=== PATIENT | male | born 1970 | race Caucasian/White ===

== ENCOUNTER 2019-04-03 19:05 | Emergency (ER) | payer SELFPAY ==
[~2019-04-03] VITALS: Ht 190.5 cm; Wt 133.4 kg
[~2019-04-03 19:05] MED LIST: ANAPROX DS550 MG PO; CLINDAMYCIN HC300 MG PO; FLEXERIL10 MG PO; MOTRIN800 MG PO; NAPROSYN500 MG PO; NKHM; NORCO 5-325 TA1 EACH PO; Orphenadrine C100 MG PO; PEN-VEE K500 MG PO; PENICILLIN VK500 MG PO; PERCOCET 325 MG1 TA7 PO; TRAMADOL HCL50 MG PO; TRIMOX500 MG PO; VICODIN 5/500 505 MG PO
[2019-04-03] MEDS ORDERED: CEFADROXIL500 M1 PO (19:54)
[2019-04-03] MEDS ORDERED: SEPTDS PO (19:54)
[2019-04-03] MEDS ORDERED: NORCO 5-325 TA1 EACH PO (19:56)
== END 2019-04-03 20:31 | disposition home or self-care (01) ==
LOC: ED 19:05
DX: L02.415 Cutaneous abscess of right lower limb (principal); F17.200 Nicotine dependence, unspecified, uncomplicated

== ENCOUNTER 2020-07-27 05:19 | Emergency (ER) | payer SELFPAY ==
[~2020-07-27] VITALS: Ht 190.5 cm; Wt 136.1 kg
[~2020-07-27 05:19] MED LIST changes: +CEFADROXIL500 M1 PO; +SEPTDS PO
[2020-07-27 06:14] LABS: BASO % 0.4 % (0.0-1.0); EOS # 0.2 10*3/uL (0.0-0.4); EOS % 2.4 % (1.0-4.0); LYMPH # 2.4 10*3/uL (1.3-4.4); LYMPH % 29.4 % (27.0-41.0); MEAN CELL VOLUME 89.1 fl (80.0-94.0); MEAN CORPUSCULAR HGB 30.1 pg (27.0-31.0); MEAN CORPUSCULAR HGB CONC 33.8 g/dl (33.0-37.0); MEAN PLATELET VOLUME 11.3 fl (9.6-12.3); MONO # 0.6 10*3/uL (0.1-1.0); MONO % 7.6 % (3.0-9.0); PLATELET COUNT AUTOMATED 134 10*3/uL (130-400); RED BLOOD COUNT 5.05 10*6/uL (4.50-5.90); RED CELL DISTRI WIDTH 13.2 % (0-14.5); WHITE BLOOD COUNT 8.3 10*3/uL (4.8-10.8)
[2020-07-27 06:31] LABS: BUN 8 mg/dl (7-24); CHLORIDE 109 mmol/L (98-107); CREATININE 0.84 mg/dL (0.70-1.30); POTASSIUM 3.9 mmol/L (3.5-5.1); SODIUM 142 mmol/L (136-145)
[2020-07-27] MEDS ORDERED: SEPTDS PO (09:55)
== END 2020-07-27 10:20 | disposition home or self-care (01) ==
LOC: ED 05:19
PROVIDERS: Internal Medicine
DX: L02.416 Cutaneous abscess of left lower limb (principal); Z88.8 Allergy status to other drugs, medicaments and biological substances; Z79.899 Other long term (current) drug therapy; Z90.49 Acquired absence of other specified parts of digestive tract; Z98.890 Other specified postprocedural states

== ENCOUNTER 2020-11-14 14:20 | Emergency (ER) | payer SELFPAY ==
[~2020-11-14] VITALS: Ht 190.5 cm; Wt 137.9 kg
[2020-11-14] MEDS ORDERED: CEPHALEXIN500 M1 PO (15:40)
== END 2020-11-14 16:09 | disposition home or self-care (01) ==
LOC: ED 14:20
DX: S61.215A Laceration without foreign body of left ring finger without damage to nail, initial encounter (principal); L03.012 Cellulitis of left finger; Z79.899 Other long term (current) drug therapy; X58.XXXA Exposure to other specified factors, initial encounter; Y93.89 Activity, other specified; Y92.89 Other specified places as the place of occurrence of the external cause; Y99.8 Other external cause status

== ENCOUNTER 2023-04-01 00:05 | Emergency (ER) | payer OTHER ==
[~2023-04-01] VITALS: Wt 131.5 kg
[~2023-04-01 00:05] MED LIST changes: +CEPHALEXIN500 M1 PO
[2023-04-01 01:01] LABS: BILIRUBIN Negative (Negative); BLOOD Negative (Negative); CLARITY Clear (Clear); COLOR Yellow (Yellow); GLUCOSE 3+ (Negative); KETONE Trace (Negative); LEUKO ESTERASE Negative (Negative); NITRITE Negative (Negative); PH 5.5 (4.5-8.0); SPECIFIC GRAVITY 1.025 (1.001-1.030)
[2023-04-01 01:22] LABS: RBC 0-2 rbc/hpf (0-2); WBC 0-2 wbc/hpf (0-5)
== END 2023-04-01 01:50 | disposition home or self-care (01) ==
LOC: ED 00:05
PROVIDERS: Internal Medicine
DX: M79.642 Pain in left hand (principal); M79.89 Other specified soft tissue disorders; M25.532 Pain in left wrist; R10.9 Unspecified abdominal pain; M25.521 Pain in right elbow; Z88.8 Allergy status to other drugs, medicaments and biological substances; Z90.49 Acquired absence of other specified parts of digestive tract; Z98.890 Other specified postprocedural states; Z87.891 Personal history of nicotine dependence

== ENCOUNTER 2023-06-26 05:02 | Emergency (ER) | payer OTHER ==
[~2023-06-26] VITALS: Ht 190.5 cm; Wt 136.1 kg
[2023-06-26 06:24] LABS: MEAN CELL VOLUME 89.4 fl (80.0-94.0); MEAN CORPUSCULAR HGB 30.1 pg (27.0-31.0); MEAN CORPUSCULAR HGB CONC 33.6 g/dl (33.0-37.0); MEAN PLATELET VOLUME 11.5 fl (9.6-12.3); PLATELET COUNT AUTOMATED 113 10*3/uL (130-400); RED BLOOD COUNT 4.92 10*6/uL (4.50-5.90); RED CELL DISTRI WIDTH 12.6 % (0-14.5); WHITE BLOOD COUNT 9.9 10*3/uL (4.8-10.8)
[2023-06-26 06:43] LABS: ALKALINE PHOSPHATASE 92 U/L (46-116); BUN 9 mg/dl (9-23); CHLORIDE 109 mmol/L (98-107); POTASSIUM 4.2 mmol/L (3.4-5.1); SGPT/ALT 19 U/L (5-49)
[2023-06-26 07:12] LABS: MANUAL DIFF REFLEX YES
[2023-06-26 07:14] LABS: BASOPHILS 1 % (0-1); PLATELET SUFFICIENCY LOW (NORMAL); TOTAL CELLS COUNTED 100 #CELLS
== END 2023-06-26 09:08 | disposition home or self-care (01) ==
LOC: ED 05:02
PROVIDERS: Emergency Medicine
DX: N49.2 Inflammatory disorders of scrotum (principal); E11.9 Type 2 diabetes mellitus without complications; Z88.8 Allergy status to other drugs, medicaments and biological substances; Z90.49 Acquired absence of other specified parts of digestive tract; Z98.890 Other specified postprocedural states

== ENCOUNTER 2024-03-25 14:44 | Emergency (ER) | payer SELFPAY ==
[~2024-03-25] VITALS: Ht 190.5 cm; Wt 138.3 kg
[2024-03-25] MEDS ORDERED: METFORMIN XR500 MG PO (15:12)
[2024-03-25] MEDS ORDERED: Ondansetron Hydrochloride 4 MG/2 ML VIAL IV ONE (15:40)
[2024-03-25] MEDS ORDERED: MORPHINE Sulfate 2 MG/ML SYR IV ONE (15:40)
[2024-03-25 16:03] LABS: BASO % 0.3 % (0.0-1.0); EOS # 0.1 10*3/uL (0.0-0.4); EOS % 0.5 % (1.0-4.0); HEMATOCRIT 47.1 % (42.0-52.0); LYMPH # 1.7 10*3/uL (1.3-4.4); LYMPH % 13.3 % (27.0-41.0); MEAN CELL VOLUME 88.4 fl (80.0-94.0); MEAN CORPUSCULAR HGB 30.2 pg (27.0-31.0); MEAN CORPUSCULAR HGB CONC 34.2 g/dl (33.0-37.0); MEAN PLATELET VOLUME 11.4 fl (9.6-12.3); MONO % 7.8 % (3.0-9.0); NEUT # 10.2 10*3/uL (2.3-7.9); NEUT % 77.9 % (47.0-73.0); PLATELET COUNT AUTOMATED 119 10*3/uL (130-400); RED BLOOD COUNT 5.33 10*6/uL (4.50-5.90); RED CELL DISTRI WIDTH 12.7 % (0-14.5); WHITE BLOOD COUNT 13.1 10*3/uL (4.8-10.8)
[2024-03-25 16:24] LABS: ALKALINE PHOSPHATASE 97 U/L (46-116); BUN 11 mg/dl (9-23); CHLORIDE 102 mmol/L (98-107); LIPASE 34 U/L (12-53); POTASSIUM 4.2 mmol/L (3.4-5.1); SGPT/ALT 38 U/L (5-49); TOTAL PROTEIN 7.6 gm/dL (6.0-8.0)
[2024-03-25 17:32] LABS: BILIRUBIN Negative (Negative); BLOOD 1+ (Negative); CLARITY Clear (Clear); COLOR Yellow (Yellow); GLUCOSE Trace (Negative); KETONE 1+ (Negative); LEUKO ESTERASE Negative (Negative); NITRITE Negative (Negative); PH 5.5 (4.5-8.0); SPECIFIC GRAVITY 1.025 (1.001-1.030)
[2024-03-25 17:39] LABS: MUCOUS 1+
[2024-03-25 17:41] LABS: WBC 0-2 wbc/hpf (0-5)
[2024-03-25] MEDS ORDERED: Ceftriaxone Sodium 1 GM/10 ML SYR IV ONE (18:10)
[2024-03-25] MEDS ORDERED: Ketorolac Tromethamine 30 MG/ML VIAL IV ONE (18:10)
[2024-03-25] MEDS ORDERED: Acetaminophen/Hydrocodone 5 MG/325 MG TABLET PO ONE (18:20)
== END 2024-03-25 18:40 | disposition home or self-care (01) ==
LOC: ED 14:44
PROVIDERS: Physician Assistant Medical
DX: N13.2 Hydronephrosis with renal and ureteral calculous obstruction (principal); Z91.048 Other nonmedicinal substance allergy status; Z90.49 Acquired absence of other specified parts of digestive tract